=== PATIENT | female | born 1935 | race African-American/Black ===

== ENCOUNTER 2016-08-17 10:53 | Emergency (ER) | payer OTHER ==
[~2016-08-17] VITALS: Ht 167.6 cm; Wt 49.9 kg
--- NOTE | ~2016-08-17 | EKG ---
[address] [address] [facility] [place] [address] ELECTROCARDIOGRAM REPORT Name: MAYI DE SOUZA [id number] Admission: 08/17/16 Attend Phys: Discharge: 08/17/16 Date of : 37 Report #: [id number] THIS REPORT FOR: //name// [facility] ED Test Date: 2016-08-17 Test Time: 11:55:31 Pat Name: MAYI DE SOUZA Department: Room: Gender: F [employer]oor Plant Technician: sanjana : 1935 Requested By: Surendra Young Order Number: [id number] MD: Jarrett Torres Measurements Intervals [place] Rate: 76 P: 53 [place]: 180 QRS: -2 QRSD: 91 T: 25 QT: 388 QTc: 437 Interpretive Statements Sinus rhythm Ventricular premature complex Probable left atrial enlargement Probable left ventricular hypertrophy No previous ECG available for comparison Electronically Signed On 08-18-2016 9:20:57 CDT by Jarrett Torres [email or web address] <ELECTRONICALLY SIGNED> By: Jarrett Torres MD, [facility] 08/18/16 0920 1155 [id number] Jarrett Torres MD, FACC /EPI
[~2016-08-17 10:53] MED LIST: ACETAMINOPHEN-1 EAC1 PO; ADVAIR 100-501 EACH INH; LISINOPRIL10 MG PO; METHIMAZOLE5 MG PO
[2016-08-17 11:49] LABS: ABSOLUTE NEUTROPHILS 5.9 thou/uL (1.4-8.2); BASOPHILS 0.7 % (0.0-2.0); EOSINOPHILS 0.1 % (0.0-3.0); HEMATOCRIT 36.1 % (37.0-47.0); HEMOGLOBIN 11.6 gm/dL (12.0-15.0); LYMPHOCYTES 16.4 % (24.0-44.0); MCH 25.1 pg (26.0-34.0); MCHC 32.1 g/dL (28.0-37.0); MONOCYTES 9.3 % (1.0-8.0); PLATELET COUNT 224 thou/uL (150-400); POLYS 73.5 % (36.0-66.0); RBC 4.63 mil/uL (4.20-5.00); RDW 15.8 % (10.5-14.5)
[2016-08-17 11:51] LABS: MANUAL DIFF NO
[2016-08-17 11:53] LABS: ANION GAP 7 mmol/L (7-16); BUN 9 mg/dL (7-18); CALCIUM 8.6 mg/dL (8.5-10.1); CHLORIDE 104 mmol/L (98-107); CO2 27 mmol/L (21-32); CREATININE 0.9 mg/dL (0.6-1.0); GLUCOSE 101 mg/dL (74-106); POTASSIUM 3.6 mmol/L (3.5-5.1); SODIUM 138 mmol/L (136-145)
[2016-08-17 12:02] LABS: TROPONIN-I < 0.04 ng/mL (<0.04-0.07)
[2016-08-17] MEDS ORDERED: MUCINEX TA600 MG/TA2 PO (13:56)
[2016-08-17 14:08] VITALS: BP 178/88
== END 2016-08-17 14:38 | disposition home or self-care (01) ==
LOC: ER 10:53
PROVIDERS: Emergency Medicine
DX: J06.9 Acute upper respiratory infection, unspecified (principal); R51 Headache; S16.1XXA Strain of muscle, fascia and tendon at neck level, initial encounter; X58.XXXA Exposure to other specified factors, initial encounter; Y93.89 Activity, other specified; Y92.89 Other specified places as the place of occurrence of the external cause; Y99.8 Other external cause status

== ENCOUNTER 2018-05-30 14:45 | Emergency (ER) | payer OTHER ==
[~2018-05-30] VITALS: Ht 167.6 cm; Wt 52.2 kg
[~2018-05-30 14:45] MED LIST changes: +MUCINEX TA600 MG/TA2 PO
[2018-05-30 15:55] LABS: ABSOLUTE NEUTROPHILS 2.8 thou/uL (1.4-8.2); EOSINOPHILS 2.3 % (0.0-3.0); HEMATOCRIT 34.3 % (37.0-47.0); HEMOGLOBIN 11.2 gm/dL (12.0-15.0); LYMPHOCYTES 36.6 % (24.0-44.0); MCH 26.2 pg (26.0-34.0); MCHC 32.5 g/dL (28.0-37.0); MCV 80.7 fL (80.0-100.0); MONOCYTES 11.3 % (1.0-8.0); PLATELET COUNT 209 thou/uL (150-400); POLYS 48.8 % (36.0-66.0); RBC 4.26 mil/uL (4.20-5.00); RDW 16.3 % (10.5-14.5); WBC 5.8 thou/uL (4.0-11.0)
[2018-05-30 16:00] LABS: ANION GAP 7 mmol/L (7-16); BUN 16 mg/dL (7-18); CHLORIDE 110 mmol/L (98-107); CO2 26 mmol/L (21-32); CREATININE 1.1 mg/dL (0.6-1.0); GLUCOSE 86 mg/dL (74-106); POTASSIUM 3.5 mmol/L (3.5-5.1); SODIUM 143 mmol/L (136-145)
[2018-05-30 16:09] LABS: ALBUMIN 2.9 g/dL (3.4-5.0); SGOT 8 U/L (15-37); SGPT < 6 U/L (30-65); TOTAL BILIRUBIN 0.6 mg/dL (<0.1-1.0); TROPONIN-I <0.06 ng/mL (<0.06)
[2018-05-30] MEDS ORDERED: ACCUNEB SO1.25 MG/1 INH (16:54)
[2018-05-30] MEDS ORDERED: TESSALON PERLE100 MG PO (16:54)
[2018-05-30 17:10] VITALS: BP 137/65
--- NOTE | 2018-05-31 08:40 | EKG ---
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13 : 1935 Requested By: Jing Valdovinos Order Number: [id number] MD: Jarrett Torres Measurements Intervals [place] Rate: 71 P: 30 [place]: 187 QRS: -2 QRSD: 91 T: 21 QT: 396 QTc: 431 Interpretive Statements Sinus rhythm No significant abnormality Compared to ECG 08/17/2016 11:55:31 Ventricular premature complex(es) no longer present Electronically Signed On 05-31-2018 8:40:34 IMPROVEMENT NURSE by Jarrett Torres [email or web address] <ELECTRONICALLY SIGNED> By: Jarrett Torres MD, [facility] 05/31/18 0840 [id number] Jarrett Torres MD, FACC /EPI
== END 2018-05-30 17:11 | disposition home or self-care (01) ==
LOC: ER 14:45
PROVIDERS: Physician Assistant
DX: R05 Cough (principal); I10 Essential (primary) hypertension; E05.90 Thyrotoxicosis, unspecified without thyrotoxic crisis or storm; F03.90 Unspecified dementia, unspecified severity, without behavioral disturbance, psychotic disturbance, mood disturbance, and anxiety; F17.210 Nicotine dependence, cigarettes, uncomplicated